=== PATIENT | female | born 1945 | race Caucasian/White ===

== ENCOUNTER → 2018-03-25 | Outpatient (CLI) | payer MEDICARE, BC ==
[~2018-03-25] MED LIST: EST3 PO; HCTZ; HYDROCHLOROTHIAZIDE; LEVO50TA80 PO; LISI2.5T60 PO; PREMARIN
--- NOTE | 2018-03-25 16:28 | RADIOLOGY IMAGING REPORT ---
FACILITY: [facility] PATIENT NAME: Dalila Ramirez : 1945 MR: [id number] V: [id number] EXAM DATE: ORDERING PHYSICIAN: DENY MCGREGOR TECHNOLOGIST: Location: [facility] - [place] Patient: Dalila Ramirez : 1945 Visit/Account:[id number] Date of Sevice: 03/25/2018 Technique: CLAVICLE LEFT HISTORY: Bump on clavicle Comparison studies: None FINDINGS: There is no acute fracture. The alignment of the left clavicle is maintained. No radioden se soft tissue lesion is identified. IMPRESSION: 1. No acute osseous process. Report Dictated By: Bharathi Lopez DO at 03/25/2018 4:22 PM Report E-Signed By: Bharathi Lopez DO at 03/25/2018 4:24 PM WSN:[email or web address]
== END ==
LOC: RAD 15:19
PROVIDERS: ATTEND Nurse Practitioner Psychiatric/Mental Health
DX: M25.512 Pain in left shoulder (principal)

== ENCOUNTER → 2018-04-18 | Outpatient (CLI) | payer MEDICARE, BC ==
[~2018-04-18] MED LIST changes: +IOPAMIDOL 76% 75 ML INFUS BTL 75 ML ONE
--- NOTE | 2018-04-18 12:30 | RADIOLOGY IMAGING REPORT ---
FACILITY: [facility] PATIENT NAME: Dalila Ramirez : 1945 MR: [id number] V: [id number] EXAM DATE: ORDERING PHYSICIAN: LUIZ MORALES TECHNOLOGIST: Location: [facility] - [place] Patient: Dalila Ramirez : 1945 Visit/Account:[id number] Date of Sevice: 04/18/2018 CHEST W W/O CONTRAST History: Left sternoclavicular joint pain and swelling, subluxation versus mass ADDITIONAL CLINICAL HISTORY: None TECHNIQUE: Contiguous axial images were performed through the chest to the level of the adrenal gla nds with and without IV contrast. Coronal and sagittal reformatting was also performed. Dose Loweri ng Technique One of the following dose optimization techniques was utilized in the performance of this exam: Autom ated exposure control; adjustment of the mA and/or kV according to the patient's size; or use of an i terative reconstruction technique. Specific details can be referenced in the facility's radiology C T exam operational policy. Contrast: 75 mL Isovue-370 COMPARISON STUDIES: none. Lungs / Pleura: Mild symmetric biapical pleural parenchymal scarring Mediastinum/nodes: negative. Heart and vessels: Small pericardial effusion Musculoskeletal / Body wall: There are sclerotic and cystic changes seen along the medial aspect of the left clavicle at the left sternoclavicular joint. Similar changes are seen along the left later al aspect of the manubrium. There is prominent soft tissue density material surrounding the left SI joint which likely accounts for the patient's clinical findings. A definite mass is not seen. These changes are likely degenerative in etiology.. Incidentally noted is an old fracture through the body of the sternum. This is best appreciated on t he sagittal images There are moderate spondylotic changes of the thoracic spine and moderate to severe spondylotic taylor es of the visualized lower cervical spine Upper abdomen: negative. IMPRESSION: There are sclerotic and cystic changes seen along the medial aspect of the left clavicle at the left sternocleidomastoid joint similar changes seen at the adjacent left lateral aspect of the manubrium. There is prominent soft tissue densities material surrounding the left SI joint which likely account s for patient's clinical findings. A definite mass is not seen. These changes are likely degenerati ve in etiology Incidentally noted is an old fracture to the body of the sternum Small pericardial effusion Mild symmetric biapical pleural parenchymal scarring Report Dictated By: Rubina Rogers MD at 04/18/2018 11:06 AM Report E-Signed By: Rubina Rogers MD at 04/18/2018 12:26 PM WSN:[email or web address]
== END ==
LOC: CT 01:00
PROVIDERS: ATTEND Orthopaedic Surgery
DX: I31.3 Pericardial effusion (noninflammatory) (principal); R91.8 Other nonspecific abnormal finding of lung field; S23.420A Sprain of sternoclavicular (joint) (ligament), initial encounter
CPT/HCPCS: 36415; 71270; 82565; Q9967

== ENCOUNTER → 2018-07-16 | Outpatient (CLI) | payer MEDICARE, BC ==
[~2018-07-16] MED LIST changes: -IOPAMIDOL 76% 75 ML INFUS BTL 75 ML ONE
--- NOTE | 2018-07-16 16:05 | RADIOLOGY IMAGING REPORT ---
FAC[place] [facility] [place]IENT NAME: LUCIA MCCALL : [id number] MR: [id number] V: [id number] EXAM DATE: ORDERING PHYSICIAN: PARDEEP AKINS TECHNOLOGIST: Bee Gutierrez PROCEDURE:BILATERAL DIGITAL SCREENING MAMMOGRAM WITH CAD ASSISTED INTERPRETATION & 3D TOMOSYNTHESIS COMPARISON:Prior mammograms 07/05/17, 06/21/16, 06/16/16, 06/08/15, 07/06/14, 06/10/14. INDICATIONS:SCREENING FINDINGS: A small to moderate amount of fibroglandular tissue is seen throughout the breasts. The parenchymal pattern has remained stable allowing for difference in mammographic technique & patient positioning. There is no evidence of malignant appearing mass, malignant appearing calcifications or other secondary sign of malignancy in either breast. DIAGNOSTIC CATEGORY 1--NEGATIVE. RECOMMENDATIONS: ROUTINE MAMMOGRAM AND CLINICAL EVALUATION. IMPRESSION: BIRADS 1: Negative. No significant abnormality is seen. Dictated by: Rubina Rogers M.D. on 07/16/2018 at 14:22 Transcribed by: RADHA on 07/16/2018 at 14:28 Approved by: Rubina Rogers M.D. on 07/16/2018 at 16:04 [facility]
== END ==
LOC: MAMO 01:04
PROVIDERS: ATTEND Obstetrics & Gynecology
DX: Z12.31 Encounter for screening mammogram for malignant neoplasm of breast (principal); Z80.3 Family history of malignant neoplasm of breast
CPT/HCPCS: 77063; 77067

== ENCOUNTER → 2018-10-11 | Outpatient (CLI) | payer MEDICARE, BC ==
--- NOTE | 2018-10-12 19:16 | RT HOLTER TEST ---
FACILITY: [facility] PATIENT NAME: LUCIA MCCALL : [id number] MR: [id number] V: [id number] EXAM DATE: ORDERING PHYSICIAN: TANK STRONG TECHNOLOGIST: Felisha Jane-up date: 2018-10-11 13:33:00 Duration: 23:17:00 Test Indications: GINGER CARDIA Medications: Lisonopril Atorvastatin Synthroid 54105 QRS complexes 1 Ventricular ectopics which represent <1 % of total QRS comp. 250 Supraventricular ectopics which represent <1 % of total QRS comp. * Paced QRS complexes which represent % of total QRS comp. VENTRICULAR ECTOPY 1 Isolated 0 Bigeminal Cycles 0 Couplets 0 Runs 0 Beats in Runs * Beats LONGEST at * BPM at :: -- * Beats FASTEST at * BPM at :: -- SUPRAVENTRICULAR ECTOPY 200 Isolated 8 Couplets 8 Runs 34 Beats in Runs 7 Beats LONGEST at 89 BPM at 22:38:31 2018-10-11 5 Beats FASTEST at 156 BPM at 10:57:22 2018-10-12 HEART RATES 39 MIN at 03:50:50 2018-10-12 62 AVG 142 MAX at 07:08:07 2018-10-12 LONGEST RR 2.144 secs at 08:27:54 2018-10-12 S-T LEVELS Channel 1 -12.800 mm MIN at 13:33:00 2018-10-11 -12.800 mm MAX at 13:33:00 2018-10-11 Channel 3 -12.800 mm MIN at 13:33:00 2018-10-11 -12.800 mm MAX at 13:33:00 2018-10-11 Test dominated by sinus rhythym. Occasional PAC including in bigeminal pattern Infrequent PVC Occasional pauses of up to 1.75 seconds Episodes of bradycardia with rates from high 30 to low 50 BPM Confirmed by Michele Encinas ([id number]) on 10/12/2018 7:15:34 PM Referred By: Overread By: Michele Quigley
== END ==
LOC: RESP 01:03
PROVIDERS: ATTEND Internal Medicine Cardiovascular Disease
DX: I49.3 Ventricular premature depolarization (principal); R00.1 Bradycardia, unspecified
CPT/HCPCS: 93225; 93226

== ENCOUNTER 2019-01-01 00:01 | Day surgery (SDC) | payer MEDICARE, BC ==
[~2019-01-01] VITALS: Ht 165.1 cm; Wt 46.7 kg
[2019-01-01] VITALS (8 sets, daily range): BP systolic 101–181; BP diastolic 65–109
[~2019-01-01 00:01] MED LIST changes: +ATOR10TA24 PO; +LISI-362 PO
[2019-01-01] MEDS ORDERED: LIDOCAINE/SOD BICARB 8.4% SYR ID ONE (08:20)
[2019-01-01] MEDS ORDERED: NORMOSOL R SOLN(*) 1000 ML BAG 1,000 ML IV PRN (08:20)
[2019-01-01] MEDS ORDERED: PROPOFOL EMUL(*) 10MG/ML 20 ML 60 ML ONE (09:13)
--- NOTE | 2019-01-01 09:21 | NUR ---
0921- PT BROUGHT TO BAY 3 VIA CART, PT IS IN SUPINE POSITION, PT IS SLEEPING UNRESPONSIVE AT THIS TIME, WILL CONTINUE TO MONITOR, VSS, ADAN AT BEDSIDE, SBAR REPORT FROM DR. SHAH AND Roni PRADO RN, PT ON 6LPM VIA OXY MASK, PT MAINTAINING SATS, RESPIRATIONS AND AIRWAY 09- DECREASED O2 TO 3LPM VIA OXY MASK 09- SL IV 09- DR. MONAE AT BEDSIDE UPDATING FAMILY
--- NOTE | 2019-01-01 09:33 | Short(Outpt) Discharge Summary ---
Discharge Summary Reason for Hosp/Final Diag: (1) Positive colorectal cancer screening using Cologuard test Status: Chronic Hospital Course & Plan: Colonoscopy with polypectomy x1 completed without problems. Departure Discharge to: Home, Self Care Discharge Instructions Home Meds Reported Medications Atorvastatin Calcium (LIPITOR) 10 Mg Tablet, 1 TAB PO QDAY, TAB 10/29/18 Lisinopril (LISINOPRIL) 10 Mg Tablet, 10 MG PO QDAY, TAB 10/29/18 Levothyroxine Sodium (Synthroid) 50 Mcg Tablet, 50 MCG PO QDAY, 0 Refills 06/02/11 Diet: Regular Activity: As Tolerated Special Instructions: Your colonoscopy was completed without problems and your prep was excellent (Good Job!!). I removed a large polyp from your colon and it was sent to pathology. My office will call you in the next week or so and let you know what the polyp is but I will likely recommend that we repeat your colonoscopy in 1 year to ensure the polyp isn't growing back due to it's large size. MARICEL MONAE MD Jan 01, 2019 09:33
--- NOTE | 2019-01-01 09:37 | NUR ---
0937- PT REMAINS SLEEPING, UNRESPONSIVE AT THIS TIME, AT BEDSIDE, ANALY
--- NOTE | 2019-01-01 09:45 | NUR ---
0945- PT AWAKE, DROWSY BUT RESPONDS TO ALL STIMULI
--- NOTE | 2019-01-01 09:45 | NUR ---
0945- PT PLACED ON RA
--- NOTE | 2019-01-01 09:50 | NUR ---
0950- PT TOLERATING COFFEE 1015- REVIEWED D/C INSTRUCTIONS WITH PT AND 1020- ORTHO VSS 1022- PT AMBULATORY TO RESTROOM, STABLE GAIT NOTED, VOID X 1 WITHOUT ISSUE 1029- DC IV WITH CATH INTACT, PT TOLERATED WELL, PRESSURE DRESSING APPLIED WITH GAUZE AND COBAND 1036- PT DRESSED 1040- DR. MONAE AT BEDSIDE 1045- PT AMBULATORY TO [facility], ACCOMPANIED BY ADAN AND PRIYANK LACEY
== END 2019-01-01 10:45 | disposition home or self-care (01) ==
LOC: OR 00:01
PROVIDERS: ATTEND Surgery
DX: D12.3 Benign neoplasm of transverse colon (principal); K57.30 Diverticulosis of large intestine without perforation or abscess without bleeding
CPT/HCPCS: 00811; 45385; 88305; J2704